=== PATIENT | male | born 1975 | race Caucasian/White ===

== ENCOUNTER 2016-10-20 11:41 | Emergency (ER) | payer OTHER ==
[2016-10-20] MEDS ORDERED: methylPREDNISolone Sodium Succinate 125 MG/2 ML SDV IM ONE (13:12)
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
[2016-10-20 13:27] VITALS: BP 136/93
== END 2016-10-20 13:26 | disposition home or self-care (01) ==
LOC: MW.ED 11:41
DX: L24.7 Irritant contact dermatitis due to plants, except food (principal); F17.210 Nicotine dependence, cigarettes, uncomplicated
CPT/HCPCS: 96372; 99282; J2930; 99283